=== PATIENT | male | born 2000 | race Hispanic/Latino ===

== ENCOUNTER → 2024-02-22 13:03 | Outpatient (CLI) | payer OTHER, SELFPAY ==
--- NOTE | 2024-02-22 13:05 | DI.MRI.S_ITS ---
PROCEDURE: MR KNEE LT WO CON INDICATIONS: PAIN IN LEFT KNEE TECHNIQUE: Noncontrast sagittal PD fast spin echo and T2 fast spin echo with fat saturation, sagittal 3-D FLASH with fat saturation; coronal T1 spin echo and PD fast spin echo with fat saturation, and axial PD fast spin echo with fat saturation through the knee. COMPARISON: None. FINDINGS: Image quality: Excellent. Menisci: In the medial meniscus, there is a complex tear with predominant bucket-handle component, with a meniscus flap extending into the intercondylar notch (series 10, image 20). There is additional vertical tear of the peripheral at of the posterior horn, extending to the meniscus body. In the lateral meniscus, the posterior root is not well visualized. Otherwise no tear of the lateral meniscus. No extrusion of the lateral meniscus body. Cruciate ligaments: Full-thickness tear of the ACL. The PCL is intact. Medial structures: The medial collateral ligament appears intact. The posterior oblique ligament, semimembranosus tendon insertions, oblique popliteal ligament, and meniscocapsular junction appear intact. Visualized portions of the pes anserinus tendons appear normal. No abnormal bursal fluid. Lateral structures: The lateral collateral ligament, long and short heads of the biceps femoris tendon appear intact. The popliteus tendon appears normal; the popliteofibular ligament appears intact. The posterosuperior and anteroinferior popliteomeniscal fascicles appear intact. The arcuate and fabellofibular ligaments appear intact, on either side of the lateral inferior geniculate artery. Iliotibial band appears normal. Anterior structures: The quadriceps and patellar tendons appear intact. Patellar alignment is normal. No femoral trochlear dysplasia or ventral trochlear prominence. No edema in the infrapatellar fat pad. Bones and cartilage: The cartilage of the patellofemoral compartment is well maintained. Cartilage of the medial compartment and the lateral compartments are well maintained. There is mild marrow edema of the posterior aspect of the lateral tibial plateau, which may be degenerative. No acute fracture. Joint space: There is physiologic knee joint fluid. No Mirza's cyst. Normal appearing synovial plicae are incidentally noted. IMPRESSION: 1. Complex tear of medial meniscus with a bucket-handle component extending into the intercondylar notch, and a vertical component. 2. Number is a kurtz of the posterior root of the lateral meniscus, underlying tear cannot be excluded. 3. Full-thickness tear of the ACL, favoring chronic. 4. Mild subchondral marrow edema of the posterior aspect of the lateral tibial plateau, likely degenerative. No significant chondrosis of the knee. Dictated by: Laquita Small M.D. on 02/22/2024 at 15:26 Approved by: Laquita Small M.D. on 02/22/2024 at 15:45
== END ==
LOC: MRI 13:04
PROVIDERS: Referring Provider Nurse Practitioner Family; Visit Provider Nurse Practitioner Family
DX: S83.232A Complex tear of medial meniscus, current injury, left knee, initial encounter (principal); S83.512A Sprain of anterior cruciate ligament of left knee, initial encounter; M25.562 Pain in left knee; R60.0 Localized edema
CPT/HCPCS: 73721